=== PATIENT | female | born 1985 | race Caucasian/White ===

== ENCOUNTER 2017-08-16 00:28 | Emergency (ER) | payer OTHER ==
[~2017-08-16] VITALS: Ht 165.1 cm; Wt 66.9 kg
[~2017-08-16 00:28] MED LIST: AUGMENTIN875 MG PO; IMPLANON68 MG; PERCOCET 5/31 TABLET PO
[2017-08-16 01:11] LABS: HEMATOCRIT 40.7 % (36.0-46.0); MCH 32.6 PG (29.0-34.0); MCHC 34.2 G/DL (30.0-36.0); MCV 95.3 FL (83-99); MEAN PLAT.VOLUME 10.6 uM^3 (9.5-12.4); PLATELET COUNT 266 K/uL (156-360); RBC DIS.WIDTH-CV 11.6 % (11.8-14.6); RBC DIS.WIDTH-SD 40.6 % (39-53); RED BLOOD COUNT 4.27 M/uL (3.80-5.20); WHITE BLOOD COUNT 10.7 K/uL (4.1-10.2)
[2017-08-16 01:17] LABS: CHLORIDE 107 mEq/L (99-109); POTASSIUM 3.5 mEq/L (3.7-5.4); SODIUM 140 mEq/L (136-147)
[2017-08-16 01:19] LABS: GLUCOSE 103 mg/dL (70-99)
[2017-08-16 01:20] LABS: ANION GAP 8 MEQ/L (2-14)
[2017-08-16 01:23] LABS: GFR ESTIMATE (CALCULATED) > 59 mL/min/; UREA NITROGEN (BUN) 12 mg/dL (9-23)
[2017-08-16 01:29] LABS: TROP-I INTERPRETATION NEGATIVE; TROPONIN-I < 0.01 ng/mL (0.0-0.30)
[2017-08-16 02:32] LABS: D-DIMER ELISA < 150.00 ng/mLDDU (<230)
[2017-08-16 03:06] VITALS: BP 114/91
== END 2017-08-16 03:07 | disposition home or self-care (01) ==
LOC: EME 00:28
DX: R07.9 Chest pain, unspecified (principal)
CPT/HCPCS: 71020; 80048; 84484; 85027; 85379; 93005